=== PATIENT | male | born 1975 | race Two or more races ===

== ENCOUNTER → 2017-12-19 | Outpatient (CLI) | payer OTHER | LOC: M RAD 08:58 | DX: R94.5 Abnormal results of liver function studies (principal) | CPT/HCPCS: 74181 ==

== ENCOUNTER → 2018-10-21 | Outpatient (CLI) | payer OTHER ==
[2018-10-21 18:34] LABS: BASO # 0.1 10^3/uL (0.0-0.2); BASO % 0.8 % (0.0-1.0); EOS # 0.1 10^3/uL (0.0-0.50); EOS % 1.7 % (0.0-3.0); HEMATOCRIT 43.7 % (42.0-52.0); HEMOGLOBIN 13.6 g/dl (13.5-17.5); LYMPH # 3.4 10^3/uL (1.5-4.5); LYMPH % 56.9 % (24.0-44.0); MEAN CORPUSCULAR HEMOGLOBIN 25.3 pg (27.0-33.0); MEAN CORPUSCULAR HGB CONC 31.1 g/dl (32.0-36.5); MEAN CORPUSCULAR VOLUME 81.4 fl (80.0-96.0); MONO # 0.5 10^3/uL (0.0-0.8); MONO % 7.8 % (0.0-5.0); NEUTROPHILS # 1.9 10^3/uL (1.8-7.7); NEUTROPHILS % 32.6 % (36.0-66.0); PLATELET COUNT, AUTOMATED 216 10^3/uL (150-450); RED BLOOD COUNT 5.37 10^6/uL (4.30-6.10); WHITE BLOOD COUNT 5.9 10^3/uL (4.0-10.0)
[2018-10-21 18:37] LABS: ALBUMIN 3.6 GM/DL (3.2-5.2); ALT/SGPT 63 U/L (12-78); BILIRUBIN,TOTAL 0.4 MG/DL (0.2-1.0); BLOOD UREA NITROGEN 14 MG/DL (7-18); CALCIUM LEVEL 8.7 MG/DL (8.5-10.1); CARBON DIOXIDE LEVEL 34 MEQ/L (21-32); CHLORIDE LEVEL 98 MEQ/L (98-107); CREATININE FOR GFR 0.83 MG/DL (0.70-1.30); GLOMERULAR FILTRATION RATE > 60.0 (>60); GLUCOSE, FASTING 121 MG/DL (70-100); SODIUM LEVEL 139 MEQ/L (136-145); TOTAL PROTEIN 7.2 GM/DL (6.4-8.2)
[2018-10-21 18:45] LABS: PROLACTIN 3.6 NG/ML (2.1-17.7)
[2018-10-21 18:46] LABS: FOLLICLE STIMULATING HORMONE 1.6 mIU/mL (1.4-18.1); LUTEINIZING HORMONE 1.4 mIU/mL (1.5-9.3)
[2018-10-21 19:30] LABS: HEMOGLOBIN A1c 8.6 %
[2018-10-23 14:37] LABS: TESTOSTERONE FREE (DIRECT) 4.4 pg/mL (6.8-21.5)
== END ==
LOC: M SMT 12:07
PROVIDERS: ATTEND Urology Pediatric Urology
DX: N39.43 Post-void dribbling (principal); N52.1 Erectile dysfunction due to diseases classified elsewhere; R79.89 Other specified abnormal findings of blood chemistry; E13.9 Other specified diabetes mellitus without complications
CPT/HCPCS: 36415; 80053; 81002; 83001; 83002; 83036; 84146; 84402; 84403; 85025; 87086; G0463

== ENCOUNTER → 2018-10-21 | Outpatient (REF) | payer OTHER | LOC: M LABSMT 11:46 | PROVIDERS: ATTEND Urology Pediatric Urology | DX: Z53.9 Procedure and treatment not carried out, unspecified reason (principal); N52.1 Erectile dysfunction due to diseases classified elsewhere; E11.3599 Type 2 diabetes mellitus with proliferative diabetic retinopathy without macular edema, unspecified eye ==

== ENCOUNTER → 2023-03-30 | Outpatient (CLI) | payer OTHER ==
[~2023-03-30] MED LIST: ADDE25CA PO; ALOG6.25 PO; ARIP1TAB10 PO; DEPA250T32 PO; FLUT22IN INH; FURO20TA2 PO; GLIP10TA PO; IBUP80TA PO; ISOS1TAB35 PO; JARD1TAB3 PO; LISI20TA37 PO; METO1TAB33 PO; METO200T28 PO; MIRT-62 PO; POTA-165 PO; PRAV20TA2 PO; SILD100T PO; VENL150C43 PO; VERA180T42 PO; VITA200012 PO; ZOLP10TA2 PO
== END ==
LOC: M CARPUL 10:09
PROVIDERS: ATTEND Family Medicine
DX: I20.9 Angina pectoris, unspecified (principal)